=== PATIENT | female | born 1965 | race Caucasian/White ===

== ENCOUNTER → 2023-12-29 13:18 | Outpatient (REF) | payer BC, SELFPAY | LOC: WDC 13:18 | PROVIDERS: ATTENDING PHYSICIAN Obstetrics & Gynecology Gynecology; FAMILY PHYSICIAN Family Medicine | DX: Z12.31 Encounter for screening mammogram for malignant neoplasm of breast (principal) | CPT/HCPCS: 77063; 77067 ==

== ENCOUNTER 2024-01-10 06:57 | Emergency (ER) | payer BC, SELFPAY ==
[2024-01-10 06:59] VITALS: BP 100/64
--- NOTE | 2024-01-10 07:38 | ED.GENMED ---
History of Present Illness
<Alejandra Sorensen DO, Resident - Last Filed: 01/10/24 12:56>
General
Chief Complaint: Headache
Source: patient, spouse and significant other
Time Seen by Provider: 01/10/24 07:03
History of Present Illness
History of Present Illness:
Pt is a 58 YO F with PMH of asthma presenting to ED with 4 days of headache, NV, and neck pain. She reports no SOB, CP, diarrhea, symptoms, numbness, tingling. She has been taking ibuprofen and acetaminophen without any relief. No recent sick
contacts.
<Spencer Pandya, - Last Filed: 01/10/24 12:48>
General
Nursing documentation reviewed up to this point in time: agreed with
Past History
<Alejandra Sorensen DO, Resident - Last Filed: 01/10/24 12:56>
Past History
ED Past Medical History: None and Other (Migraines)
ED Past Surgical History: Appendectomy, and Orthopedic
Social History
Tobacco: Non-smoker
Alcohol: Occasional
Drug: None
Personal:
Living: with family
Review of Systems
<Alejandra Sorensen DO, Resident - Last Filed: 01/10/24 12:56>
Review of Systems
Constitutional: Reports fatigue, sleep disturbance, night sweats and other (posterior headaches, body and neck pain)
EENT: Reports no symptoms
Respiratory: Reports no symptoms
Cardiac: Reports no symptoms
ABD/GI: Reports nausea and vomiting
: Reports no symptoms
Musculoskeletal: Reports muscle pain and neck pain
Skin: Reports no symptoms
Neurological: Reports dizzy and headache
Endocrine: Reports no symptoms
Hematologic/Lymphatic: Reports no symptoms
Psychiatric: Reports no symptoms
Phy Exam
<Alejandra Sorensen DO, Resident - Last Filed: 01/10/24 12:56>
General Physical Exam
General Presentation: mild distress
General Skin: warm, dry and pale
General Habitus: normal
General Mental: alert and tearful
ENT Exam
ENT Exam: EOMI, pharynx normal and neck supple
Eye Exam
Eye Exam: PERRL, EOMI, cornea clear and conjunctiva normal
Cardiovascular Exam
Cardiovascular Exam: regular rate/rhythm, no edema, no gallop, no JVD, no murmur and normal peripheral pulses
Pulmonary Exam
Pulmonary Exam: lungs clear, no respiratory distress, no rales, chest non tender, no crackles, no rhonchi, no stridor, no wheezing and no cough
Course
<Alejandra Sorensen DO, Resident - Last Filed: 01/10/24 12:56>
Orders/Labs/Results
Orders:
Orders
01/10/24 07:33
IV Insert/Care/Rem.- Treatment PRN
Metoclopramide [Reglan] 10 mg IV NOW STA
01/10/24 07:34
CT Head W/o Iv Contrast Urgent
Comment:
Reason For Exam: posterior headache
01/10/24 07:37
0.9% Sodium Chloride 1000 ml [Nss] 1,000 ml IV BOLUS
01/10/24 07:39
Ondansetron Injectable [Zofran] 4 mg IV NOW STA
01/10/24 07:54
Complete Blood Count/With Diff Urgent
Comprehensive Metabolic Panel Urgent
01/10/24 08:28
Ketorolac [Toradol] 15 mg IV NOW STA
01/10/24 09:22
COVID-19 Antigen Urgent
Source: Nasal Swab
01/10/24 09:55
Acetaminophen [Tylenol] 650 mg PO NOW STA
01/10/24 11:06
Metoclopramide [Reglan] 10 mg IV NOW STA
Abnormal Lab Results
01/10/24
07:54
WBC 3.6 L 10^3/uL
(4.8-10.8)
Plt Count 90 L 10^3/uL
(130-400)
MPV 11.6 H fL
(7.4-10.4)
Absolute Lymphs (auto) 0.5 L 10^3/uL
(1.2-3.4)
Neutrophils % 76.2 H %
(42.2-75.2)
Lymphocytes % 14.6 L %
(20.5-51.1)
Sodium 134 L mmol/L
(135-145)
Carbon Dioxide 21 L mmol/L
(22-30)
Glucose 108 H mg/dl
(70-99)
AST 50 H U/L
(14-36)
ALT 43 H U/L
(0-35)
Total Protein 5.9 L g/dl
(6.3-8.2)
01/10/24 07:54
01/10/24 07:54
Vital Signs
Initial and Last Documented VS:
Initial Vital Signs
Temp Pulse Resp BP Pulse Ox
98.1 F 74 18 100/64 97
01/10/24 06:59 01/10/24 06:59 01/10/24 06:59 01/10/24 06:59 01/10/24 06:59
Last Documented Vital Signs
Temp Pulse Resp BP Pulse Ox
98.1 F 61 16 117/69 100
01/10/24 06:59 01/10/24 11:05 01/10/24 11:05 01/10/24 11:05 01/10/24 11:05
<Spencer Pandya, DO - Last Filed: 01/10/24 12:48>
Orders/Labs/Results
Orders:
Orders
01/10/24 07:33
IV Insert/Care/Rem.- Treatment PRN
Metoclopramide [Reglan] 10 mg IV NOW STA
01/10/24 07:34
CT Head W/o Iv Contrast Urgent
Comment:
Reason For Exam: posterior headache
01/10/24 07:37
0.9% Sodium Chloride 1000 ml [Nss] 1,000 ml IV BOLUS
01/10/24 07:39
Ondansetron Injectable [Zofran] 4 mg IV NOW STA
01/10/24 07:54
Complete Blood Count/With Diff Urgent
Comprehensive Metabolic Panel Urgent
01/10/24 08:28
Ketorolac [Toradol] 15 mg IV NOW STA
01/10/24 09:22
COVID-19 Antigen Urgent
Source: Nasal Swab
01/10/24 09:55
Acetaminophen [Tylenol] 650 mg PO NOW STA
01/10/24 11:06
Metoclopramide [Reglan] 10 mg IV NOW STA
Abnormal Lab Results
01/10/24
07:54
WBC 3.6 L 10^3/uL
(4.8-10.8)
Plt Count 90 L 10^3/uL
(130-400)
MPV 11.6 H fL
(7.4-10.4)
Absolute Lymphs (auto) 0.5 L 10^3/uL
(1.2-3.4)
Neutrophils % 76.2 H %
(42.2-75.2)
Lymphocytes % 14.6 L %
(20.5-51.1)
Sodium 134 L mmol/L
(135-145)
Carbon Dioxide 21 L mmol/L
(22-30)
Glucose 108 H mg/dl
(70-99)
AST 50 H U/L
(14-36)
ALT 43 H U/L
(0-35)
Total Protein 5.9 L g/dl
(6.3-8.2)
01/10/24 07:54
01/10/24 07:54
Vital Signs
Initial and Last Documented VS:
Initial Vital Signs
Temp Pulse Resp BP Pulse Ox
98.1 F 74 18 100/64 97
01/10/24 06:59 01/10/24 06:59 01/10/24 06:59 01/10/24 06:59 01/10/24 06:59
Last Documented Vital Signs
Temp Pulse Resp BP Pulse Ox
98.1 F 61 16 117/69 100
01/10/24 06:59 01/10/24 11:05 01/10/24 11:05 01/10/24 11:05 01/10/24 11:05
<Alejandra Sorensen DO, Resident - Last Filed: 01/10/24 12:56>
MDM/Problems Addressed
Differential Diagnosis Includes:
migraine, viral infection
MDM/Problems Addressed:
Pt is a 58 YO F with PMH of asthma presenting to ED with 4 days of headache, NV, and neck pain. Labs, fluids and CT head without contrast ordered. Head CT was negative. COVID negative. Pt given Toradol and Tylenol without relief. Reglan provided
mild improvement. Pt would like to be DC home instead of staying overnight for continued monitoring. Pt should followup with PCP in a few days to have blood work re-evaluated.
Chronic conditions affecting care:
headaches
Acute Exacerbation and/or Progression of Chronic Illness:
headaches
<Alejandra Sorensen DO, Resident - Last Filed: 01/10/24 12:56>
*Radiology
Radiology exam reviewed: radiology read reviewed (Head CT negative )
*Pulse Oximetry
Patient hypoxic: no
*EKG
Interpreted by ED Provider?: NA
*Manager Travel Interpretation
Rate: Manager Travel- N/A
*Critical Care Note
Total Time (30-74mins, 75-104mins- exclusive of procedures): Not Applicable
<Spencer Pandya DO - Last Filed: 01/10/24 12:48>
Data Reviewed
Review of Other/Old Records Reveals: Labs (Prior platelets 188, 10/20/2020)
<Alejandra Sorensen DO, Resident - Last Filed: 01/10/24 12:56>
Patient Management
Social determinants of health affecting care: Living situation and Strong social support
<Spencer Pandya DO - Last Filed: 01/10/24 12:48>
Update Note
Update Note:
Patient feels somewhat improved. Offered admission to further evaluate and monitor labs, patient feels comfortable going home. Mild leukopenia and mild thrombocytopenia. Patient will follow-up with primary care. Return precautions given. Do not
suspect meningitis.
Stable for discharge.
ED Attending Note
<Alejandra Sorensen DO, Resident - Last Filed: 01/10/24 12:56>
-
Portions of this chart may have been created with voice recognition software.� Occasional wrong word or��sound alike� substitutions may have occurred due to the inherent limitations of voice recognition software.
<Spencer Pandya DO - Last Filed: 01/10/24 12:48>
ED Attending Note
Patient seen and examined by attending physician: Yes
I performed a history and physical exam of patient and discussed management with resident, I reviewed resident's note and agree with documented findings and plan of care.: Yes
ED Attending Note:
I have reviewed and agree with patient treatment plan by Alejandra Sorensen. Exam revealed
Physical Exam
General: Appears uncomfortable, afebrile
Neck: supple. no meningeal signs. normal posterior pharynx
Heart: s1/s2 regular rate and rhythm, no murmur. equal radial
pulses.
HEENT: Pupils equal round reactive to light, EOMI
Lungs: no acute respiratory distress. clear bilaterally
Abdomen: normal bowel sounds. not tender. no CVAT
Neuro: alert and oriented. no focal neurological deficits cranial nerves II through XII intact
Skin: no rash
Psychiatric: well kept. interactive and cooperative
Extremities: no edema. no calf tenderness. negative homans. good distal pulses
Discharge Plan
Departure
Patient Disposition: Home (Routine Discharge)
Date of Disposition: 01/10/24
Time of Disposition: 12:27
Patient with high blood pressure during this ER visit?: No
Condition: Good
Discharge Problem:
Headache
Instructions: Migraines (DC), Headache, Adult (DC)
Prescriptions:
No Action
ibuprofen 200 MG tablet
400 mg PO Q4HPRN PRN (Reason: pain)
omeprazole 20 MG capsule,delayed release(DR/EC)
20 mg PO DAILY
albuterol sulfate 1 PUFF HFA aerosol inhaler
2 puff inhalation R Q4HPRN PRN (Reason: exercise)
dextran 70-hypromellose [Artificial Tears (PF)] 1 EACH dropperette
1 drp BOTH EYES BIDPRN PRN (Reason: dry eyes)
calcium carbonate-vitamin D3 [Oyster Shell Calcium-Vit D3] 500 MG tablet
1 tab PO DAILY
multivitamin with folic acid [Tab-A-Lizeth] 1 TABLET tablet
1 tab PO DAILY
amoxicillin-pot clavulanate 1 TABLET tablet
1 tab PO Q12 Qty: 14 0RF
prednisone 20 MG tablet
40 mg PO DAILY Qty: 8 0RF
benzonatate 100 MG capsule
100 mg PO TIDPRN PRN (Reason: cough) Qty: 12 0RF
Referrals:
Cely Maravilla MD [Family Provider] - Call in 1-3 days for appt
Interventions
Interventions:
*Risk Screen - Suicide Last Done: 01/10/24 07:01
*General Assessment Last Done: 01/10/24 07:01
*Neglect/Abuse Screening Last Done: 01/10/24 07:01
*ED COVID-19 Vaccine History Last Done: 01/10/24 07:21
ED- Neurological Assessment Last Done: 01/10/24 07:21
Discharge Date and Time
Print Language: CHINESE
[2024-01-10] MEDS: ZOFRAN 4 MG IV (07:56)
[2024-01-10] MEDS: NSS 1000 IV (07:56)
[2024-01-10 08:25] VITALS: BP 112/74
[2024-01-10 08:28] LABS: % Basophils 0.3 % (0-2); % Eosinophils 0.6 % (0-6); % Lymphocytes 14.6 % (20.5-51.1); % Monocytes 8.3 % (1.7-9.3); % Neutrophils 76.2 % (42.2-75.2); Absolute Lymphocytes 0.5 10^3/uL (1.2-3.4); Absolute Monocytes 0.3 10^3/uL (0.1-0.6); Absolute Neutrophils 2.8 10^3/uL (1.4-6.5); Hematocrit 37.5 % (37.0-47.0); Hemoglobin 12.6 g/dL (12.0-16.0); Mean Corp Hgb Conc. 33.6 g/dL (33.0-37.0); Mean Corpuscular Hgb 29.3 pg (27.0-31.0); Mean Corpuscular Volume 87.2 fL (81.0-99.0); Mean Platelet Volume 11.6 fL (7.4-10.4); Nucleated Red Blood Cells % 0 %; Platelet Count 90 10^3/uL (130-400); Red Cell Dist. Width 13.3 % (11.5-14.5); White Blood Cell Count 3.6 10^3/uL (4.8-10.8)
[2024-01-10] MEDS: TORADOL 15 MG IV (08:32)
[2024-01-10 08:40] LABS: ALT (SGPT) 43 U/L (0-35); AST (SGOT) 50 U/L (14-36); Albumin 3.5 g/dl (3.5-5.0); Alkaline Phosphatase 79 U/L (38-126); Blood Urea Nitrogen 16 mg/dl (7-17); Calcium 9.2 mg/dl (8.4-10.2); Carbon Dioxide 21 mmol/L (22-30); Chloride 104 mmol/L (98-107); Glucose 108 mg/dl (70-99); Potassium 4.3 mmol/L (3.5-5.1); Sodium 134 mmol/L (135-145); Total Bilirubin 0.7 mg/dl (0.2-1.3); Total Protein 5.9 g/dl (6.3-8.2); eGFR > 60.00
[2024-01-10 09:56] LABS: COVID-19 Antigen Negative (Negative)
[2024-01-10] MEDS: TYLENOL 650 MG PO (09:58)
[2024-01-10 11:05] VITALS: BP 117/69
[2024-01-10] MEDS: REGLAN 10 MG IV (11:08)
== END 2024-01-10 12:52 | disposition home or self-care (01) ==
LOC: EMR 06:57
PROVIDERS: EMERGENCY PHYSICIAN Emergency Medicine; FAMILY PHYSICIAN Family Medicine
DX: R51.9 Headache, unspecified (principal); J45.909 Unspecified asthma, uncomplicated; Z11.52 Encounter for screening for COVID-19
CPT/HCPCS: 99284; 96374; 96375; 96376; 96361; 70450; 80053; 85025; 87811

== ENCOUNTER → 2024-08-02 07:49 | Outpatient (REF) | payer BC, SELFPAY | LOC: RAD 07:49 | PROVIDERS: ATTENDING PHYSICIAN Nurse Practitioner Acute Care | DX: Z78.0 Asymptomatic menopausal state (principal) | CPT/HCPCS: 77080 ==

== ENCOUNTER → 2025-04-24 16:40 | Outpatient (REF) | payer BC, SELFPAY | LOC: RAD 16:40 | PROVIDERS: ATTENDING PHYSICIAN Student in an Organized Health Care Education/Training Program; FAMILY PHYSICIAN Family Medicine | DX: E21.5 Disorder of parathyroid gland, unspecified (principal); K90.0 Celiac disease; M81.0 Age-related osteoporosis without current pathological fracture; R63.5 Abnormal weight gain; R79.89 Other specified abnormal findings of blood chemistry; R82.994 Hypercalciuria; Z13.29 Encounter for screening for other suspected endocrine disorder; Z51.81 Encounter for therapeutic drug level monitoring | CPT/HCPCS: 72040; 72072; 72100 ==